=== PATIENT | male | born 1945 | race Caucasian/White ===

== ENCOUNTER 2021-11-25 19:09 | Inpatient (IN) | payer MEDICARE ==
[~2021-11-25] VITALS: Ht 167.6 cm; Wt 66.0 kg
[2021-11-25 21:46] LABS: HEMATOCRIT. 43.7 % (42.0-52.0); HEMOGLOBIN. 14.5 g/dL (14.0-18.0); MEAN CORPUSCULAR HEMOGLOBIN 30.3 pg (28.0-32.0); MEAN CORPUSCULAR VOLUME 90.9 fL (80.0-94.0); MEAN PLATELET VOLUME 8.5 fl (7.4-10.4); PLATELET 237 x1000/uL (130-400); RED BLOOD CELL COUNT 4.81 mill/uL (4.7-6.1); RED CELL DISTRIBUTION WIDTH 13.5 % (11.6-14.6)
[2021-11-25 22:01] LABS: CHLORIDE 101 mEq/L (98-107)
[2021-11-25 22:28] LABS: PLATELET ESTIMATE NORMAL
[2021-11-26] MEDS ORDERED: ASPIRIN 325MG EC TABLET PO ONE (00:15)
[2021-11-26] MEDS ORDERED: KETOROLAC 15MG/ML VIAL IV ONE (00:15)
[2021-11-26] MEDS ORDERED: CEFTRIAXONE 1 G PREMIX 50 ML IV ONE (02:15)
[2021-11-26] MEDS ORDERED: AZITHROMYCIN 500MG/250ML 250 ML IV ONE (02:15)
[2021-11-26 10:00] VITALS: BP 114/54
[2021-11-26] MEDS ORDERED: DIPHENHYDRAMINE 50MG/ML VIAL IV PRN (10:00)
[2021-11-26] MEDS ORDERED: IPRATROPIUM/ALBUTEROL 0.5-3(2.5)MG/3ML NEB HHN PRN (10:00)
[2021-11-26] MEDS ORDERED: CEFTRIAXONE 1 G PREMIX 50 ML IV SCH (10:00)
[2021-11-26] MEDS ORDERED: CLONIDINE 0.1MG TABLET PO PRN (10:00)
[2021-11-26] MEDS ORDERED: ONDANSETRON HCL 4MG/2ML INJ IV PRN (10:00)
[2021-11-26 12:00] VITALS: BP 114/54
[2021-11-26] MEDS ORDERED: AMLO2.5T2 PO (14:10)
[2021-11-26] MEDS ORDERED: IBUPROFEN 600MG TABLET PO PRN (14:15)
[2021-11-26 16:00] VITALS: BP 105/52
[2021-11-26 20:00] VITALS: BP 97/46
[2021-11-26 20:33] LABS: CREATINE KINASE MB FRACTION 1.6 ng/mL (0.5-3.6)
[2021-11-27] VITALS: BP 97/55
[2021-11-27] MEDS: CEFTRIAXONE 1,000 MG in DEXTROSE 5% WATER 50 ML IV SCH (01:12)
[2021-11-27 04:00] VITALS: BP 106/55
[2021-11-27] MEDS: AZITHROMYCIN 500 MG in DEXT 5% WATER 250 ML IV SCH (06:11)
[2021-11-27] MEDS ORDERED: DEXTROSE 50% WATER 50ML SYRINGE IV PRN (06:45)
[2021-11-27 06:56] LABS: BASOPHILS % 0.2 % (0.0-2.0); EOSINOPHILS % 0.6 % (0.0-5.0); HEMATOCRIT. 40.4 % (42.0-52.0); HEMOGLOBIN. 13.8 g/dL (14.0-18.0); LYMPHOCYTES % 14.7 % (20.0-50.0); MEAN CORPUSCULAR HEMOGLOBIN 30.8 pg (28.0-32.0); MEAN CORPUSCULAR VOLUME 90.4 fL (80.0-94.0); MEAN PLATELET VOLUME 8.9 fl (7.4-10.4); MONOCYTES % 8.5 % (2.0-8.0); PLATELET 222 x1000/uL (130-400); RED BLOOD CELL COUNT 4.47 mill/uL (4.7-6.1); RED CELL DISTRIBUTION WIDTH 13.6 % (11.6-14.6)
[2021-11-27] MEDS ORDERED: AZITHROMYCIN 500 MG in DEXT 5% WATER 250 ML IV SCH (07:00)
[2021-11-27 07:19] LABS: CHLORIDE 104 mEq/L (98-107)
[2021-11-27] MEDS: BLOOD SUGAR DIAGNOSTIC STRIP TEST SCH ×4 (07:40→21:36)
[2021-11-27 08:00] VITALS: BP 102/53
[2021-11-27] MEDS: INSULIN LISPRO 100 UNITS/ML SUBCUT SCH ×4 (09:37→22:03)
[2021-11-27] MEDS: ACETAMINOPHEN 325MG TABLET PO PRN (09:49)
[2021-11-27] MEDS ORDERED: AZIT500T8 MT (11:58)
[2021-11-27 12:00] VITALS: BP 99/50
[2021-11-27] MEDS: GUAIFENESIN 600MG ER TABLET PO SCH ×2 (12:51→20:22)
[2021-11-27 16:00] VITALS: BP 111/49
[2021-11-27 20:00] VITALS: BP 115/55
[2021-11-28] VITALS: BP 92/47
[2021-11-28] MEDS: ACETAMINOPHEN 325MG TABLET PO PRN (00:49)
[2021-11-28] MEDS: CEFTRIAXONE 1,000 MG in DEXTROSE 5% WATER 50 ML IV SCH (00:49)
[2021-11-28 04:00] VITALS: BP 120/60
[2021-11-28] MEDS: AZITHROMYCIN 500 MG in DEXT 5% WATER 250 ML IV SCH (06:56)
[2021-11-28] MEDS: BLOOD SUGAR DIAGNOSTIC STRIP TEST SCH ×3 (07:40→16:39)
[2021-11-28 08:00] VITALS: BP 119/50
[2021-11-28] MEDS: INSULIN LISPRO 100 UNITS/ML SUBCUT SCH ×3 (08:10→16:39)
[2021-11-28] MEDS: GUAIFENESIN 600MG ER TABLET PO SCH (08:47)
[2021-11-28 11:42] VITALS: BP 96/62
[2021-11-28 12:00] VITALS: BP 106/66
[2021-11-28 16:00] VITALS: BP 96/62
== END 2021-11-28 18:30 | DRG 177 ==
LOC: ER 20:08 → 7WST 11-26 03:06
PROVIDERS: ADMIT Internal Medicine; ATTEND Internal Medicine
DX: U07.1 COVID-19 (principal); J12.82 Pneumonia due to coronavirus disease 2019; I10 Essential (primary) hypertension; R77.8 Other specified abnormalities of plasma proteins; Z87.891 Personal history of nicotine dependence; J02.9 Acute pharyngitis, unspecified
CPT/HCPCS: 36415; 71045; 71250; 80053; 82550; 82553; 82728; 82962; 83615; 83880; 84145; 84443; 84484; 85025; 86140; 87426; 93005; 99291; J0456; J0696; J1815; J1885; J7060; U0003; U0005

== ENCOUNTER 2025-05-16 22:10 | Emergency (ER) | payer MEDICARE, MEDICAID ==
[~2025-05-16] VITALS: Ht 165.1 cm; Wt 71.2 kg
[~2025-05-16 22:10] MED LIST: AZIT500T8 MT
[2025-05-16 22:17] VITALS: BP 120/56; PULSE 82; RESP 12; TEMP 37.1; O2SAT 99
[2025-05-16 22:20] VITALS: O2SAT 100
[2025-05-16 23:06] VITALS: TEMP 98.8
[2025-05-16] MEDS: ACETAMINOPHEN 500MG TABLET PO ONE (23:06)
[2025-05-16] MEDS ORDERED: AMOX1TAB16 MT (23:24)
== END 2025-05-17 00:08 | disposition home or self-care (01) ==
LOC: ER 22:10
DX: K04.7 Periapical abscess without sinus (principal); Z79.899 Other long term (current) drug therapy
CPT/HCPCS: 99283